=== PATIENT | female | born 1980 | race Caucasian/White ===

== ENCOUNTER 2019-02-11 16:05 | Emergency (ER) | payer OTHER ==
[2019-02-11 16:35] VITALS: BP 138/77; PULSE 68; RESP 16; TEMP 98; O2SAT 98
--- NOTE | 2019-02-11 17:36 | ED PDOC ---
HPI: Headache Time Seen by Provider: 02/11/19 16:38 Chief Complaint (Nursing): ENT Problem Chief Complaint (Provider): ENT Problem History Per: Patient History/Exam Limitations: no limitations Onset/Duration Of Symptoms: Days (x2 weeks) Additional Complaint(s): Patient is a 38 year old female who presents to the emergency department complaining of a headache. She states that x2 weeks ago she started feeling pressure around her eyes, nasal congestion, and intermittent dizziness(none now). Patient went to [place] last week and was told she had liquid behind her eardrum and sinusitis and subsequently started on Bactrim. Patient reports she still has a headache, prompting ED evaluation. She further states that she does have a history of similar headaches and that they have been ongoing since she moved back to [place] from [place]. Patient is currently taking prescribed Bactrim but instead of taking the medication x2 times a day as instructed, she takes it only once a day. She is also took 2 tabs of Advil for her headache; her last dose was yesterday. No other complaints, including fever, visual changes, numbness/weakness, N/V, neck pain/stiffness, throat pain. PMD: [place] LMP: irregular secondary to IUD Past Medical History Reviewed: Historical Data, Nursing Documentation, Vital Signs Vital Signs: Last Vital Signs Temp 98.0 F 02/11/19 16:30 Pulse 68 02/11/19 16:30 Resp 16 02/11/19 16:30 BP 138/77 02/11/19 16:30 Pulse Ox 98 02/11/19 16:30 - Medical History PMH: Asthma - Surgical History Other surgeries: D&C - Family History Family History: States: Unknown Family Hx - Home Medications Home Medications: Ambulatory Orders Medication Instructions Recorded Fluticasone Nasal [Flonase] 1 actuation NS DAILY #1 unit 02/11/19 Loratadine/Pseudoephedrine 1 each PO DAILY #14 tab 02/11/19 [Claritin-D 24 Hour Tablet] - Allergies Allergies/Adverse Reactions: Allergies Allergy/AdvReac Type Severity Reaction Status Date / Time Penicillins Allergy ANAPHYLAXIS Verified 02/11/19 16:30 Review of Systems ROS Statement: Except As Marked, All Systems Reviewed And Found Negative ENT: Positive for: Nose Congestion Neurological: Positive for: Headache Physical Exam - Reviewed Nursing Documentation Reviewed: Yes Vital Signs Reviewed: Yes - Physical Exam Comments: GENERAL APPEARANCE: Patient is awake, alert, oriented x 3, in no acute distress. Resting comfortably. SKIN: Warm, dry; (-) cyanosis; (-) rash. HEAD: (-) scalp swelling or tenderness, (-) temporal artery tenderness. EYES: (-) conjunctival injection ENMT: (+) bilateral maxillary sinus tenderness; mucous membranes are moist. TMs: nonbulging and nonerythematous. Pharynx: clear with uvula midline (-) erythema (-) exudate. Airway patent, (-) stridor. NECK: Supple, FROM (-) tenderness, (-) stiffness, (-) meningismus, (-) lymphadenopathy. CHEST AND RESPIRATORY: (-) rales, (-) rhonchi, (-) wheezes; breath sounds equal bilaterally. Respirations even and nonlabored. HEART AND CARDIOVASCULAR: (-) irregularity ABDOMEN AND GI: Soft; (-) tenderness. EXTREMITIES: (-) deformity. NEURO AND PSYCH: Mental status as above. registered dental assistant: Pupils equal and reactive; EOMI and painless; (-) facial asymmetry; tongue and uvula midline. Strength symmetric. Gait: steady. Speech: clear. Cerebellar tests intact. - Laboratory Results Urine POC: Negative - ECG O2 Sat by Pulse Oximetry: 98 (RA) Pulse Ox Interpretation: Normal Medical Decision Making Medical Decision Making: Time: 1719 Impression: sinusitis and sinus headache Plan: --Urine test --Toradol 30 mg IM --Re-evaluation --Patient advised to take Bactrim BID as directed instead of QD. 1830 On re-evaluation, patient reports improvement of symptoms. On exam, patient remains AAOx3, in no acute distress. Vitals stable. Lab, Diagnostic results d/w the patient in great detail. Diagnosis of sinusitis, sinus headache d/w the patient. Based on history, exam and diagnostic results, plan will be for outpatient follow up. Patient instructed to follow-up with pmd / referral provided / the clinic in 1- 2 days without fail. Advised to take medication as prescribed. Return to the emergency room at any time for any new or worsening symptoms. Patient states she fully agrees with and understands discharge instructions. States that she agrees with the plan and disposition. Verbalized and repeated discharge instructions and plan. I have given the patient opportunity to ask any additional questions. Scribe Attestation: Documented by Stephen Shell acting as a scribe for Meena Pickard Provider Scribe Attestation: All medical record entries made by the Scribe were at my direction and personally dictated by me. I have reviewed the chart and agree that the record accurately reflects my personal performance of the history, physical exam, medical decision making, and the department course for this patient. I have also personally directed, reviewed, and agree with the discharge instructions and disposition. Disposition - Clinical Impression Clinical Impression: Sinusitis, Sinus headache - Patient ED Disposition Is Patient to be Admitted: No Counseled Patient/Family Regarding: Studies Performed, Diagnosis, Need For Followup, Rx Given - Disposition Referrals: Shoaib Hutson MD [Staff Provider] - primary, doctor [Other] Disposition: Routine/Home Disposition Time: 18:35 Condition: STABLE Additional Instructions: The emergency medical care you received today was directed at your acute symptoms. If you were prescribed any medication, please fill it and take as directed. It may take several days for your symptoms to resolve. Return to the Emergency Department if your symptoms worsen, do not improve, or if you have any other problems. Please contact your doctor in 2 days for re-evaluation and follow up / or call one of the physicians/clinics you have been referred to that are listed on the Patient Visit Information form that is included in your discharge packet. Bring any paperwork you were given at discharge with you along with any medications you are taking to your follow up visit. Our treatment cannot replace ongoing medical care by a primary care provider (PCP) outside of the emergency department. Prescriptions: Fluticasone Nasal [Flonase] 1 actuation NS DAILY #1 unit Loratadine/Pseudoephedrine [Claritin-D 24 Hour Tablet] 1 each PO DAILY #14 tab Instructions: Sinusitis in Adults, Sinus Headache (DC) Forms: [employer] (French) Print Language: ESTONIAN - POA Present On Arrival: None
== END 2019-02-11 19:48 | disposition home or self-care (01) ==
LOC: H.ER 16:05
DX: J32.9 Chronic sinusitis, unspecified (principal); Z88.0 Allergy status to penicillin
CPT/HCPCS: 96372; 99281; J1885